=== PATIENT | male | born 1950 | race Caucasian/White ===

== ENCOUNTER → 2017-11-21 09:29 | Outpatient (CLI) | payer MEDICARE, BC | END | disposition home or self-care (01) | LOC: D.CT 09:29 | DX: S20.20XA Contusion of thorax, unspecified, initial encounter (principal); X58.XXXA Exposure to other specified factors, initial encounter; Y93.89 Activity, other specified; Y92.89 Other specified places as the place of occurrence of the external cause ==

== ENCOUNTER → 2017-12-05 07:35 | Outpatient (CLI) | payer MEDICARE, BC | END | disposition home or self-care (01) | LOC: D.CT 07:35 | DX: R10.9 Unspecified abdominal pain (principal) ==

== ENCOUNTER → 2018-03-21 18:48 | Outpatient (CLI) | payer MEDICARE, BC ==
[2018-03-26 14:18] LABS: EHRLICHIA CHAFF IGG Negative (Neg:<1:64); EHRLICHIA CHAFF IGM Negative (Neg:<1:20); F. TULARENSIS - IGG Negative (()); F. TULARENSIS - IGM Negative (()); HGE IGG TITER Negative (Neg:<1:64); HGE IGM TITER Negative (Neg:<1:20)
[2018-03-27 16:15] LABS: RMSF IGM 0.18 index (0.00-0.89)
== END | disposition home or self-care (01) ==
LOC: D.LABREF 18:48
PROVIDERS: Pediatrics
DX: A77.0 Spotted fever due to Rickettsia rickettsii (principal)

== ENCOUNTER → 2018-07-04 15:09 | Outpatient (CLI) | payer MEDICARE, BC | END | disposition home or self-care (01) | LOC: D.MRI 15:09 | DX: R41.82 Altered mental status, unspecified (principal) ==

== ENCOUNTER 2018-10-23 17:54 | Inpatient (IN) | payer MEDICARE, BC ==
[~2018-10-23] VITALS: Ht 193 cm; Wt 125.0 kg
[2018-10-23] MEDS ORDERED: METOPROLOL TART25 MG (17:59)
[2018-10-23] MEDS ORDERED: LOVASTATIN20 MG PO (17:59)
[2018-10-23] MEDS ORDERED: ALTACE10 MG (17:59)
[2018-10-23] MEDS ORDERED: ALDACTONE25 MG (18:00)
[2018-10-23] MEDS ORDERED: MOBIC7.5 MG (18:00)
[2018-10-23] MEDS ORDERED: NEURONTIN 300300 MG PO (18:01)
[2018-10-23] MEDS ORDERED: MULTI-DAY VITAM1 TAB PO (18:01)
[2018-10-23] MEDS ORDERED: BAYER CHEWABLE81 MG (18:01)
[2018-10-23] MEDS ORDERED: FISH OIL 1,0001 CA1 (18:01)
[2018-10-23 18:35] LABS: BASOPHILS 0.1 % (0-2); EOSINOPHILS 1.7 % (0-7); HEMATOCRIT 42.2 % (42.0-54.0); HEMOGLOBIN 14.9 g/dL (13.5-17.5); IMMATURE GRANULOCYTES 0.2 % (0-5); LYMPHOCYTES 7.3 % (15-50); MCH 33.7 pg (26.0-34.0); MCHC 35.3 g/dL (31.0-37.0); MCV 95.5 fL (80.0-100.0); MEAN PLATELET VOLUME 9.4 fL (7.4-10.4); MONOCYTES 12.4 % (2-11); NEUTROPHILS 78.3 % (40-80); PLATELET COUNT 179 10x3/uL (130-400); RBC 4.42 10x6/uL (4.20-6.10); RDW 12.3 % (11.5-14.5); WBC 13.9 10x3/uL (4.8-10.8)
[2018-10-23 18:51] LABS: ALBUMIN 3.6 g/dL (3.4-5.0); ALKALINE PHOSPHATASE 80 U/L (46-116); ALT (SGPT) 45 U/L (10-68); BILIRUBIN - TOTAL 0.58 mg/dL (0.2-1.3); CALC OSMOLALITY 269 mosm/kg (275-300); CARBON DIOXIDE 23.3 mmol/L (21.0-32.0); CHLORIDE - SERUM 99 mmol/L (98-107); CREATININE - SERUM 0.9 mg/dL (0.6-1.3); GLUCOSE 113 mg/dL (74-106); POTASSIUM - SERUM 4.6 mmol/L (3.5-5.1); PROTEIN - SERUM 7.4 g/dL (6.4-8.2); SODIUM 134 mmol/L (136-145); UREA NITROGEN 16 mg/dL (7-18); eGFR NON AFRICAN AMERICAN 89 mL/min (90-120)
[2018-10-23 19:04] LABS: CKMB 0.3 U/L (0.0-3.6); CREATINE KINASE 79 UL (21-232); TROPONIN-I < 0.017 ng/mL (0.000-0.060)
--- NOTE | 2018-10-23 22:30 | NUR ---
PT ARRIVED TO FLOOR FROM ER VIA WHEELCHAIR. AMBULATED TO BED INDEPENDENTLY W/O DIFFICULTY. ALERT AND ORIENTED. HARD OF HEARING, WEARS HEARING AIDS. AT BEDSIDE. IV RIGHT HAND INFUSING NS @ 125. PT STATES HE HAS HEADACHE 10/07. STATES HE HAS CHRONIC HEADACHES AFTER GETTING [place] SP[place]ED [place] FEVER LAST JANUARY AND HAS CHRONIC DRY MOUTH. DENIES COUGH. STATES HE HAS FELT SOME PRESSURE IN HIS CHEST STARTING YESTERDAY. BILAT LOWER LOBES DIMINISHED TO AUSCULTATION. PT HAS SLEEP APNEA BUT DID NOT BRING CPAP. PRN O2 PROVIDED FOR SLEEP. SKIN CLEAR. SANDWHICH AND WATER PROVIDED FOR PT. DENIES OTHER NEEDS. CL IN REACH, WILL CONT TO MONITOR
[2018-10-23 23:08] VITALS: BP 118/73; Ht 193 cm; Wt 125.0 kg
[2018-10-24 00:40] VITALS: BP 109/64
[2018-10-24 04:47] VITALS: BP 114/72
[2018-10-24 05:27] LABS: BASOPHILS 0.1 % (0-2); EOSINOPHILS 0 % (0-7); HEMOGLOBIN 14.4 g/dL (13.5-17.5); IMMATURE GRANULOCYTES 0.2 % (0-5); LYMPHOCYTES 3.8 % (15-50); MCHC 34.3 g/dL (31.0-37.0); MCV 96.3 fL (80.0-100.0); MEAN PLATELET VOLUME 9.8 fL (7.4-10.4); MONOCYTES 1.1 % (2-11); NEUTROPHILS 94.8 % (40-80); PLATELET COUNT 178 10x3/uL (130-400); RBC 4.36 10x6/uL (4.20-6.10); RDW 12.2 % (11.5-14.5); WBC 12.9 10x3/uL (4.8-10.8)
[2018-10-24 05:56] LABS: ALBUMIN 3.2 g/dL (3.4-5.0); ALKALINE PHOSPHATASE 73 U/L (46-116); ALT (SGPT) 43 U/L (10-68); BILIRUBIN - TOTAL 0.35 mg/dL (0.2-1.3); CALCIUM 8.7 mg/dL (8.5-10.1); CHLORIDE - SERUM 103 mmol/L (98-107); CREATININE - SERUM 0.8 mg/dL (0.6-1.3); POTASSIUM - SERUM 4.5 mmol/L (3.5-5.1); PROTEIN - SERUM 6.9 g/dL (6.4-8.2); SODIUM 137 mmol/L (136-145); UREA NITROGEN 19 mg/dL (7-18); eGFR NON AFRICAN AMERICAN > 90 mL/min (90-120)
[2018-10-24 06:26] LABS: CALC OSMOLALITY 279 mosm/kg (275-300); GLUCOSE 163 mg/dL (74-106)
--- NOTE | 2018-10-24 08:00 | NUR ---
MORNING ASSESSMENT COMPLETE. SEE ASSESSMENT FLOWSHEET FOR FURTHER DETAILS. PT LYING IN BED AAO X4 TO PERSON, PLACE, TIME, AND SITUATION. DENIES NEEDS AT THIS TIME. CL IN REACH. SIDE RAILS UP X3 FOR PATIENT SAFETY. BED IN LOWEST POSITION.
[2018-10-24 09:19] VITALS: BP 121/72
--- NOTE | 2018-10-24 09:31 | NUR ---
BUMPED FLUIDS DOWN TO 75 PER DOC ORDER
[2018-10-24 12:43] VITALS: BP 115/64
[2018-10-24 13:16] LABS: APPEARANCE CLEAR (CLEAR); COLOR YELLOW (YELLOW)
[2018-10-24 13:17] LABS: BILIRUBIN NEGATIVE (NEGATIVE); GLUCOSE 250 mg/dL (NEGATIVE); KETONE NEGATIVE (NEGATIVE); NITRITE NEGATIVE (NEGATIVE); PROTEIN NEGATIVE (NEGATIVE); UROBILINOGEN NORMAL (NORMAL)
[2018-10-24 13:19] LABS: BACTERIA FEW /hpf (NONE SEEN); EPITHELIAL CELLS NSEEN /hpf (0-5); RED CELLS - URINE 0-5 /hpf (0-5); WHITE CELLS - URINE NSEEN /hpf (0-5)
[2018-10-24 16:14] VITALS: BP 108/69
--- NOTE | 2018-10-24 20:10 | NUR ---
ASSESSMENT COMPLETE. NO DISTRESS NOTED. PT HAS NO COMPLAINTS AT THIS TIME.
[2018-10-24 21:02] VITALS: BP 117/68
--- NOTE | 2018-10-24 23:42 | NUR ---
PT LAYING IN BED EYES CLOSED, BIPAP ON. CHEST RISING AND FALLING. NO DISTRESS NOTED.
[2018-10-25 04:46] VITALS: BP 120/60
--- NOTE | 2018-10-25 04:49 | NUR ---
I have reviewed this patient and I concur with the Shift Assessment completed by the Licensed Practical Nurse today this shift.
--- NOTE | 2018-10-25 05:20 | NUR ---
PT LAYING IN BED. NO COMPLAINTS AT THIS TIME. NO DISTRESS NOTED.
[2018-10-25 06:44] LABS: HEMATOCRIT 38.9 % (42.0-54.0); HEMOGLOBIN 13.3 g/dL (13.5-17.5); MCH 32.5 pg (26.0-34.0); MCHC 34.2 g/dL (31.0-37.0); MCV 95.1 fL (80.0-100.0); MEAN PLATELET VOLUME 9.4 fL (7.4-10.4); PLATELET COUNT 193 10x3/uL (130-400); RBC 4.09 10x6/uL (4.20-6.10); RDW 12.3 % (11.5-14.5); WBC 22.9 10x3/uL (4.8-10.8)
[2018-10-25 06:47] LABS: CALC OSMOLALITY 283 mosm/kg (275-300); CALCIUM 8.8 mg/dL (8.5-10.1); CARBON DIOXIDE 22.3 mmol/L (21.0-32.0); CHLORIDE - SERUM 104 mmol/L (98-107); CREATININE - SERUM 0.8 mg/dL (0.6-1.3); GLUCOSE 196 mg/dL (74-106); POTASSIUM - SERUM 4.2 mmol/L (3.5-5.1); SODIUM 138 mmol/L (136-145); UREA NITROGEN 21 mg/dL (7-18); eGFR NON AFRICAN AMERICAN > 90 mL/min (90-120)
[2018-10-25 08:56] LABS: ANISOCYTOSIS OCC; EOSINOPHILS 1 % (0-7); LYMPHOCYTES 2 % (15-50); MONOCYTES 5 % (2-11); NEUTROPHILS 85 % (40-80); PLATELET ESTIMATE NORMAL
[2018-10-25 09:35] VITALS: BP 160/73
--- NOTE | 2018-10-25 10:00 | NUR ---
MORNING ASSESSMENT COMPLETE. SEE ASSESSMENT FLOWSHEET FOR FURTHER DETAILS. PT LYING IN BED AAO X4 TO PERSON, PLACE, TIME, AND SITUATION. DENIES NEEDS AT THIS TIME. CL IN REACH. SIDE RAILS UP X3 FOR PATIENT SAFTY. BED IN LOWEST POSITION.
[2018-10-25] MEDS ORDERED: PREDNISONE10 MG PO (13:09)
[2018-10-25] MEDS ORDERED: ZITHROMAX500 MG PO (13:10)
[2018-10-25] MEDS ORDERED: OMNICEF300 MG PO (13:10)
[2018-10-25 13:24] VITALS: BP 124/72
--- NOTE | 2018-10-25 13:58 | MORECARE ---
CASE MANAGEMENT DISCHARGE SUMMARY PATIENT: JUMANA VIEIRA UNIT: [id number] ADM DATE: 10/23/18 AGE: 68 : 48 SEX: M ROOM/BED: D.2232 AUTHOR: AVILA LINN PHYSICIAN: REFERRING PHYSICIAN: SCARLETT WYMAN MD DATE OF SERVICE: 10/25/18 Discharge Plan Patient Name: JUMANA VIEIRA [facility] : 1950 Planned Disposition: Home Anticipated Discharge Date: Discharge Date: Expected LOS: Initial Reviewer: [email or web address] Initial Review Date: 10/25/2018 Generated: 10/25/18 2:58 pm DCPIA - Discharge Planning Initial Assessment Updated by [email or web address]: Suzanne Lao on 10/25/18 1:53 pm * Is the patient Alert and Oriented? Yes * How many steps to enter\exit or inside your home? 0/0 * PCP Dr. Arevalo * Pharmacy [facility] on [address] * Preadmission Environment Home with Family * ADLs Independent * Equipment CPAP * List name and contact numbers for known caregivers / representatives who currently or will assist patient after discharge: Maricruz Chavez - - [phone] * Verbal permission to speak to the caregivers and representatives has been obtained from the patient. Yes * Community resources currently utilized None * Please name any agencies selected above. DME for CPAP is [facility] * Additional services required to return to the preadmission environment? No * Can the patient safely return to the preadmission environment? Yes * Has this patient been hospitalized within the prior 30 days at any hospital? No Patient Name: JUMANA VIEIRA Page [id number] at 1358 All edits/amendments must be made on the electronic document DICTATION DATE: 10/25/18 1357 TRUCK ENGINE ASSEMBLER: YANNA 10/25/18 1357 RPT#: [id number] DC DATE: STATUS: ADM IN [facility] [address] [place] [address] END OF REPORT
--- NOTE | 2018-10-25 14:48 | NUR ---
PT LEFT FLOOR VIA W/C. WENT OVER ALL D/C INSTRUCTIONS. DENIES CONCERNS. LEFT WITH ALL PERSONLA BELONGINGS
== END 2018-10-25 14:57 | disposition home or self-care (01) | DRG 194 ==
LOC: D.ER 17:54 → D.MS 21:17
PROVIDERS: Family Medicine; ADMIT Internal Medicine Nephrology; ATTEND Internal Medicine Nephrology
DX: J18.9 Pneumonia, unspecified organism (principal); I42.9 Cardiomyopathy, unspecified; I10 Essential (primary) hypertension